=== PATIENT | male | born 1945 | race Caucasian/White ===

== ENCOUNTER 2024-01-11 14:15 | Emergency (ER) | payer OTHER, SELFPAY ==
[2024-01-11 14:16] VITALS: BP 170/98
--- NOTE | 2024-01-11 14:38 | ED.GENMED ---
History of Present Illness
General
Chief Complaint: Skin Surface Trauma
Source: patient
Exam Limitations: none
Time Seen by Provider: 01/11/24 14:37
Nursing documentation reviewed up to this point in time: agreed with
History of Present Illness
History of Present Illness:
78-year-old male with a past medical history of A-fib on warfarin, persistent DVTs, COPD, diabetes presents to the emergency department today with concerns of bleeding from right posterior leg. Patient reports that started around an hour ago.
Patient states that this happened to him a few days ago but eventually resolved on its own. Patient states that he is not able to see where the bleeding is coming from. Patient denies trauma to the leg or falls. Patient states that he has chronic
venous insufficiency and chronic swelling with in his legs. 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
Past History
Past History
ED Past Medical History: COPD, GERD, HTN, IDDM and Other (DVT)
ED Past Surgical History: Appendectomy and Other (Discectomy, Laparaotomy)
Social History
Tobacco: Former smoker
Alcohol: Occasional
Drug: None
Personal:
Living: alone
Review of Systems
Review of Systems
All Other Systems: ROS reviewed and negative except as documented in HPI and ROS
Phy Exam
Physical Exam
Physical Exam:
General: Patient is well appearing and in no acute distress; non-toxic
Skin: Warm and dry, 1 mm raised actively bleeding lesion noted
Head: Normocephalic, atraumatic
Eyes: Sclera non-icteric. EOMs intact.
Cardiac: Regular rate
Peripheral Vascular: Bilateral pedal edema noted
Pulm: Normal respiratory effort
Musculoskeletal: No tenderness to palpation of right lower extremity. Full ROM.
Neuro: CN II-XII intact, no focal neurologic deficits.
Psychiatric: Appropriate mood and affect.
Course
Orders/Labs/Results
Orders:
Orders
01/11/24 14:26
CMP [Comprehensive Metabolic Panel] Urgent
Complete Blood Count/With Diff Urgent
PT/INR [Prothrombin Time] Urgent
Abnormal Lab Results
01/11/24
14:26
MCHC 32.9 L g/dL
(33.0-37.0)
MPV 10.5 H fL
(7.4-10.4)
Absolute Monos (auto) 0.7 H 10^3/uL
(0.1-0.6)
Monocytes % 9.6 H %
(1.7-9.3)
PT 26.2 H Sec
(11.4-14.6)
Chloride 108 H mmol/L
(98-107)
Glucose 134 H mg/dl
(70-99)
01/11/24 14:26
01/11/24 14:26
Vital Signs
Initial and Last Documented VS:
Initial Vital Signs
Temp Pulse Resp BP Pulse Ox
97.8 F 68 18 170/98 94
01/11/24 14:16 01/11/24 14:16 01/11/24 14:16 01/11/24 14:16 01/11/24 14:16
Last Documented Vital Signs
Temp Pulse Resp BP Pulse Ox
97.8 F 76 19 156/89 97
01/11/24 14:16 01/11/24 15:53 01/11/24 15:53 01/11/24 15:53 01/11/24 15:53
MDM/Problems Addressed
Differential Diagnosis Includes:
ddx include bleeding abrasion, pustule, nevus, skin cancer
Chronic conditions affecting care:
78 y/o male on Coumadin presents with persistent bleeding from his right lower extremity skin lesion. Did happened spontaneously without trauma. Patient was unaware the lesion was there. I applied surgicel and subsequent non-adherent pads and
pressure dressing. Patient was observed in the ER for approximately 45 min and did not have recurrence of bleeding. Patient stable for discharge.
*Pulse Oximetry
Patient hypoxic: no
*Critical Care Note
Total Time (30-74mins, 75-104mins- exclusive of procedures): Not Applicable
Data Reviewed
Review of Other/Old Records Reveals: Records (reviewed discharge summary from 08/20/22 patient seen for persistent afib)
Source: patient and records
Prescriptions/Medications Considered But Not Given:
considered abx but no purulent drainage, no erythema, no f/c
Patient Management
Escalation/DeEscalation of care consider admission/obs:
Reviewed case with my ER attending
Patient stable for discharge
ED Attending Note
-
Portions of this chart may have been created with voice recognition software.� Occasional wrong word or��sound alike� substitutions may have occurred due to the inherent limitations of voice recognition software.
Discharge Plan
Departure
Patient Disposition: Home (Routine Discharge)
Date of Disposition: 01/11/24
Time of Disposition: 15:38
Patient with high blood pressure during this ER visit?: Yes
Condition: Good
Discharge Problem:
Hemorrhage from wound, Skin lesion of right leg
Instructions: Wound Care (DC), [facility]ounds, BLOOD PRESSURE
Prescriptions:
No Action
metformin 500 mg Tablet
500 mg PO BID
ascorbic acid (vitamin C) [Vitamin C] 500 mg Tablet
500 mg PO DAILY
furosemide 20 mg Tablet
40 mg PO DAILY
buspirone 15 mg Tablet
15 mg PO DAILY
metoprolol tartrate 25 mg Tablet
25 mg PO BID
hp-umn-RY-Go-Jh-xvmfril-lutein 0.4-162-18 mg Tablet
1 tab PO DAILY
Jardiance 10 mg Tablet
10 mg PO DAILY
potassium chloride 10 mEq Capsule, Extended Release
20 meq PO DAILY
warfarin 5 mg Tablet
5 mg PO DAILY
sildenafil [Viagra] 25 mg Tablet
25 mg PO DAILY PRN (Reason: erection)
fluticasone propion-salmeterol [Wixela Inhub] 250-50 mcg/dose Blister With Device
1 inh INHALATION BID
lisinopril 10 mg Tablet
20 mg PO DAILY Qty: 1 0RF
Rx Instructions:
your lisinopril dose has increased from 10mg daily to 20mg daily!
Referrals:
Glen Choi MD [Family Provider] -
Activity Restrictions/Additional Instructions:
Please return to the emergency department should you experience rebleeding of the wound, dizziness, lightheadedness, nausea, vomiting, chest pain, shortness of breath, or any other signs or symptoms concerning to you.
Please call your skoog operator Dr. Brunner to schedule a follow up appointment to address your wound.
Interventions
Interventions:
*Risk Screen - Suicide Last Done: 01/11/24 14:16
*General Assessment Last Done: 01/11/24 14:16
*Neglect/Abuse Screening Last Done: 01/11/24 14:16
ED- Fall Risk Assessment Last Done: 01/11/24 15:16
*ED COVID-19 Vaccine History Last Done: 01/11/24 14:16
*Nursing Disposition Last Done: 01/11/24 15:53
ED-Skin Assessment Last Done: 01/11/24 15:15
Discharge Date and Time
Discharge Date/Time: 01/11/24 15:54
Print Language: ARGENTINE
[2024-01-11 14:41] LABS: % Basophils 0.5 % (0-2); % Eosinophils 1.4 % (0-6); % Immature Granulocytes 0.3 % (0-0.5); % Lymphocytes 31.9 % (20.5-51.1); % Monocytes 9.6 % (1.7-9.3); % Neutrophils 56.3 % (42.2-75.2); Absolute Eosinophils 0.1 10^3/uL (0-0.7); Absolute Lymphocytes 2.3 10^3/uL (1.2-3.4); Absolute Monocytes 0.7 10^3/uL (0.1-0.6); Absolute Neutrophils 4.1 10^3/uL (1.4-6.5); Hematocrit 46.2 % (39.0-52.0); Hemoglobin 15.2 g/dL (13.0-18.0); Mean Corp Hgb Conc. 32.9 g/dL (33.0-37.0); Mean Corpuscular Hgb 30.3 pg (27.0-31.0); Mean Platelet Volume 10.5 fL (7.4-10.4); Nucleated Red Blood Cells % 0 % (-); Platelet Count 191 10^3/uL (130-400); Red Blood Cell Count 5.02 10^6/uL (4.70-6.10); Red Cell Dist. Width 14.4 % (11.5-14.5); White Blood Cell Count 7.3 10^3/uL (4.8-10.8)
[2024-01-11 14:55] LABS: INR 2.35; PT 26.2 Sec (11.4-14.6)
[2024-01-11 15:00] LABS: ALT (SGPT) 23 U/L (0-50); AST (SGOT) 29 U/L (17-59); Albumin 4.6 g/dl (3.5-5.0); Alkaline Phosphatase 74 U/L (38-126); Blood Urea Nitrogen 20 mg/dl (9-20); Calcium 9.3 mg/dl (8.4-10.2); Carbon Dioxide 22 mmol/L (22-30); Chloride 108 mmol/L (98-107); Glucose 134 mg/dl (70-99); Potassium 4.2 mmol/L (3.5-5.1); Sodium 144 mmol/L (135-145); Total Bilirubin 0.4 mg/dl (0.2-1.3); Total Protein 7.2 g/dl (6.3-8.2); eGFR > 60.00
[2024-01-11 15:53] VITALS: BP 156/89
== END 2024-01-11 15:54 | disposition home or self-care (01) ==
LOC: EMR 14:15
PROVIDERS: EMERGENCY PHYSICIAN Emergency Medicine; FAMILY PHYSICIAN Family Medicine
DX: R58 Hemorrhage, not elsewhere classified (principal); L98.9 Disorder of the skin and subcutaneous tissue, unspecified; J44.9 Chronic obstructive pulmonary disease, unspecified; K21.9 Gastro-esophageal reflux disease without esophagitis; I10 Essential (primary) hypertension; E11.9 Type 2 diabetes mellitus without complications; I48.91 Unspecified atrial fibrillation; I87.2 Venous insufficiency (chronic) (peripheral); Z79.01 Long term (current) use of anticoagulants; Z86.718 Personal history of other venous thrombosis and embolism; Z87.891 Personal history of nicotine dependence; Z90.49 Acquired absence of other specified parts of digestive tract
CPT/HCPCS: 99282; 80053; 85025; 85610

== ENCOUNTER 2024-02-06 10:29 | Emergency (ER) | payer OTHER, SELFPAY ==
--- NOTE | 2024-02-06 10:37 | ED.GENMEDP ---
ED Provider Triage
<Padmini Guerra LEAD FABRICATOR - Last Filed: 02/06/24 10:39>
-
Patient seen by provider in Triage?: Seen in Triage
Attestation: A medical screening examination has been initiated by a qualified medical provider. Based on the assessment performed at this time, it has been determined that an emergent medical condition may exist and the patient has been informed
that further medical evaluation and possible additional diagnostic testing may be needed.
HPI: 78-year-old male on Warfarin for DVT states he got OOB walked to BR and saw blood all over the floor. Has a 'puncture' right lower leg.
GENERAL: Alert , in no apparent distress
EYE: No visual abnormalities.
ENT: No visible abnormalities.
LUNGS: No acute respiratory distress
NEUROLOGICAL: Alert and oriented
SKIN: Skin intact. No visible changes.
MUSCULOSKELETAL: Moving extremities normally
PSYCH: Normal and appropriate interaction.
This is a medical evaluation conducted in person to initiate diagnostic evaluation and provide initial therapeutics. Please see further documentation by the treating clinician.
History of Present Illness Ped
<Padmini Guerra LEAD FABRICATOR - Last Filed: 02/06/24 10:39>
General
Chief Complaint: Skin Surface Trauma
Time Seen by Provider: 02/06/24 10:44
<ENOC Quan Jr.C - Last Filed: 02/06/24 14:05>
General
Source: patient
Exam Limitations: none
Nursing documentation reviewed up to this point in time: agreed with
History of Present Illness
Initial Comments:
78-year-old male with past medical history of A-fib, currently on Coumadin, COPD, diabetes presenting to the emergency department today with concerns of bleeding for the right lower extremity. Unsure of any specific injuries. Patient currently on
Coumadin. Denies any nausea vomiting numbness weakness chest pain shortness of breath. No recent infections
Past Medical History Pediatric
<Padmini Guerra, LEAD FABRICATOR - Last Filed: 02/06/24 10:39>
Family/Social History
Tobacco: Former smoker
Alcohol: Occasional
Drug: None
Review of Systems Pediatric
<Edwar Gomez Jr., PA-C - Last Filed: 02/06/24 14:05>
Review of Systems Pediatric
All Other Systems: ROS reviewed and negative except as documented in HPI and ROS
Pediatric Physical Exam
<Edwar Gomez Jr., PA-C - Last Filed: 02/06/24 14:05>
Physical Exam
Pediatric Physical Exam:
GENERAL: Alert , in no apparent distress
EYE: pupils equal and reactive
NECK: Supple, no significant adenopathy.
ENT: o/p clr, mmm.
CARDIAC: Regular rate and rhythm .
LUNGS: Clear breath sounds bilaterally, no acute respiratory distress, no wheezes/rales/rhonchi
ABDOMEN: Soft, without focal tenderness, no r/g, no cvat
NEUROLOGICAL: Alert and oriented, no focal neuro deficits
SKIN: Small break in the skin to the right posterior calf with some small amount of bleeding nonpulsatile controlled as soon as pressure is placed overlying. Warm and dry, skin intact.
MUSCULOSKELETAL: No edema, well perfused.
PSYCH: Normal and appropriate interaction.
Course
<Padmini Guerra, LEAD FABRICATOR - Last Filed: 02/06/24 10:39>
Orders/Labs/Results
Orders:
Orders
02/06/24 11:47
Complete Blood Count/With Diff Urgent
Comprehensive Metabolic Panel Urgent
Prothrombin Time Urgent
Abnormal Lab Results
02/06/24
11:47
MCHC 32.1 L g/dL
(33.0-37.0)
MPV 10.5 H fL
(7.4-10.4)
PT 24.3 H Sec
(11.4-14.6)
BUN 24 H mg/dl
(9-20)
Glucose 175 H mg/dl
(70-99)
02/06/24 11:47
02/06/24 11:47
Vital Signs
Initial and Last Documented VS:
Initial Vital Signs
Temp Pulse Resp BP Pulse Ox
98.6 F 73 18 136/74 97
02/06/24 10:38 02/06/24 10:38 02/06/24 10:38 02/06/24 10:38 02/06/24 10:38
Last Documented Vital Signs
Temp Pulse Resp BP Pulse Ox
98.6 F 98 18 142/95 95
02/06/24 10:38 02/06/24 12:17 02/06/24 10:38 02/06/24 13:00 02/06/24 13:30
<Edwar Gomez Jr., PA-C - Last Filed: 02/06/24 14:05>
Orders/Labs/Results
Orders:
Orders
02/06/24 11:47
Complete Blood Count/With Diff Urgent
Comprehensive Metabolic Panel Urgent
Prothrombin Time Urgent
Abnormal Lab Results
02/06/24
11:47
MCHC 32.1 L g/dL
(33.0-37.0)
MPV 10.5 H fL
(7.4-10.4)
PT 24.3 H Sec
(11.4-14.6)
BUN 24 H mg/dl
(9-20)
Glucose 175 H mg/dl
(70-99)
02/06/24 11:47
02/06/24 11:47
Vital Signs
Initial and Last Documented VS:
Initial Vital Signs
Temp Pulse Resp BP Pulse Ox
98.6 F 73 18 136/74 97
02/06/24 10:38 02/06/24 10:38 02/06/24 10:38 02/06/24 10:38 02/06/24 10:38
Last Documented Vital Signs
Temp Pulse Resp BP Pulse Ox
98.6 F 98 18 142/95 95
02/06/24 10:38 02/06/24 12:17 02/06/24 10:38 02/06/24 13:00 02/06/24 13:30
<Edwar Gomez Jr., PA-C - Last Filed: 02/06/24 14:05>
MDM/Problems Addressed
MDM/Problems Addressed:
78-year-old male presenting to the emergency department with concerns of bleeding from the right posterior calf. Occurred just prior to arrival. Unable to control this at home but unable to get to his calf well concerning mobility issues. Here
there is a very small break in the skin no surrounding redness swelling or warmth. Patient does have obvious venous stasis issues and varicosities. Bleeding was controlled with Surgicel and pressure but otherwise no evidence of additional
underlying pathology. Labs were obtained that did not show any acute abnormalities with normal hemoglobin level. Otherwise stable for outpatient follow-up return precautions given.
<Edwar Gomez Jr., PA-C - Last Filed: 02/06/24 14:05>
*Critical Care Note
Total Time (30-74mins, 75-104mins- exclusive of procedures): Not Applicable
ED Attending Note
<Padmini Guerra LEAD FABRICATOR - Last Filed: 02/06/24 10:39>
-
Portions of this chart may have been created with voice recognition software.� Occasional wrong word or��sound alike� substitutions may have occurred due to the inherent limitations of voice recognition software.
Discharge Plan
Departure
Patient Disposition: Home (Routine Discharge)
Date of Disposition: 02/06/24
Time of Disposition: 14:04
Patient with high blood pressure during this ER visit?: No
Condition: Good
Covid-19: Not Applicable
Discharge Problem:
Varicose vein of leg, Bleeding from varicose vein
Instructions: Wound Care (DC)
Prescriptions:
No Action
metformin 500 mg Tablet
500 mg PO BID
ascorbic acid (vitamin C) [Vitamin C] 500 mg Tablet
500 mg PO DAILY
furosemide 20 mg Tablet
40 mg PO DAILY
buspirone 15 mg Tablet
15 mg PO DAILY
metoprolol tartrate 25 mg Tablet
25 mg PO BID
jq-ajb-DP-As-Ap-ceqanad-lutein 0.4-162-18 mg Tablet
1 tab PO DAILY
Jardiance 10 mg Tablet
10 mg PO DAILY
potassium chloride 10 mEq Capsule, Extended Release
20 meq PO DAILY
warfarin 5 mg Tablet
5 mg PO DAILY
sildenafil [Viagra] 25 mg Tablet
25 mg PO DAILY PRN (Reason: erection)
fluticasone propion-salmeterol [Wixela Inhub] 250-50 mcg/dose Blister With Device
1 inh INHALATION BID
lisinopril 10 mg Tablet
20 mg PO DAILY Qty: 1 0RF
Rx Instructions:
your lisinopril dose has increased from 10mg daily to 20mg daily!
Referrals:
Rishabh Chu III, MD [Active] - Follow up in 5-7 days
Apple Spencer MD [Family Provider] -
Activity Restrictions/Additional Instructions:
You came to the emergency department today with concerns of bleeding from your right leg. Please keep the area clean covered and follow-up closely with your primary care doctor in the next week or 2. Return to the emergency department for any
worsening, new or concerning symptoms.
Interventions
Interventions:
*Risk Screen - Suicide Last Done: 02/06/24 10:38
*General Assessment Last Done: 02/06/24 10:38
*Neglect/Abuse Screening Last Done: 02/06/24 10:38
ED- Fall Risk Assessment Last Done: 02/06/24 11:38
*ED COVID-19 Vaccine History Last Done: 02/06/24 11:38
ED-Skin Assessment Last Done: 02/06/24 11:38
Discharge Date and Time
Print Language: SAMOAN
[2024-02-06 10:38] VITALS: BP 136/74
[2024-02-06 11:38] VITALS: BMI 41.0
[2024-02-06 11:45] VITALS: BP 145/80
[2024-02-06 12:00] VITALS: BP 135/93
[2024-02-06 12:04] LABS: % Basophils 0.6 % (0-2); % Immature Granulocytes 0.1 % (0-0.5); % Monocytes 8.1 % (1.7-9.3); % Neutrophils 59.2 % (42.2-75.2); Absolute Eosinophils 0.1 10^3/uL (0-0.7); Absolute Lymphocytes 2.1 10^3/uL (1.2-3.4); Absolute Monocytes 0.6 10^3/uL (0.1-0.6); Absolute Neutrophils 4.1 10^3/uL (1.4-6.5); Hematocrit 47.7 % (39.0-52.0); Hemoglobin 15.3 g/dL (13.0-18.0); Mean Corp Hgb Conc. 32.1 g/dL (33.0-37.0); Mean Corpuscular Hgb 29.5 pg (27.0-31.0); Mean Corpuscular Volume 91.9 fL (80.0-94.0); Mean Platelet Volume 10.5 fL (7.4-10.4); Nucleated Red Blood Cells % 0 % (-); Platelet Count 172 10^3/uL (130-400); Red Blood Cell Count 5.19 10^6/uL (4.70-6.10); Red Cell Dist. Width 13.7 % (11.5-14.5); White Blood Cell Count 6.9 10^3/uL (4.8-10.8)
[2024-02-06 12:25] LABS: INR 2.18; PT 24.3 Sec (11.4-14.6)
[2024-02-06 12:27] LABS: ALT (SGPT) 23 U/L (0-50); AST (SGOT) 23 U/L (17-59); Albumin 4.2 g/dl (3.5-5.0); Alkaline Phosphatase 75 U/L (38-126); Blood Urea Nitrogen 24 mg/dl (9-20); Calcium 9.1 mg/dl (8.4-10.2); Carbon Dioxide 25 mmol/L (22-30); Chloride 106 mmol/L (98-107); Estimated Creatinine Clearance 103 ml/min; Glucose 175 mg/dl (70-99); Potassium 4.3 mmol/L (3.5-5.1); Sodium 138 mmol/L (135-145); Total Bilirubin 0.6 mg/dl (0.2-1.3); Total Protein 6.9 g/dl (6.3-8.2); eGFR > 60.00
[2024-02-06 13:00] VITALS: BP 142/95
[2024-02-06 14:58] VITALS: BP 153/81
== END 2024-02-06 14:59 | disposition home or self-care (01) ==
LOC: EMR 10:29
PROVIDERS: Registered Nurse; EMERGENCY PHYSICIAN Student in an Organized Health Care Education/Training Program; FAMILY PHYSICIAN Family Medicine
DX: I83.891 Varicose veins of right lower extremity with other complications (principal); Z87.891 Personal history of nicotine dependence; Z79.01 Long term (current) use of anticoagulants; I48.91 Unspecified atrial fibrillation
CPT/HCPCS: 99283; 80053; 85025; 85610

== ENCOUNTER → 2024-02-20 07:05 | Outpatient (REF) | payer OTHER, SELFPAY | LOC: HWRAD 07:05 | PROVIDERS: ATTENDING PHYSICIAN Family Medicine | DX: I83.891 Varicose veins of right lower extremity with other complications (principal) | CPT/HCPCS: 93970 ==

== ENCOUNTER → 2024-03-28 13:45 | Outpatient (REF) | payer OTHER, SELFPAY | LOC: RAD 13:45 | PROVIDERS: ATTENDING PHYSICIAN Family Medicine | DX: R09.89 Other specified symptoms and signs involving the circulatory and respiratory systems (principal) | CPT/HCPCS: 93922; 93925 ==

== ENCOUNTER 2024-09-11 08:10 | Outpatient (RCR) | payer OTHER, SELFPAY | END 2024-09-11 23:59 | disposition home or self-care (01) | LOC: RPT 08:10 | PROVIDERS: ATTENDING PHYSICIAN Family Medicine | DX: I89.0 Lymphedema, not elsewhere classified (principal); Z73.6 Limitation of activities due to disability | CPT/HCPCS: 97163; 97530 ==